=== PATIENT | female | born 1990 | race Caucasian/White ===

== ENCOUNTER 2016-10-12 17:47 | Emergency (ER) | payer BC, MEDICAID ==
[2016-10-12 18:03] VITALS: BP 116/82
--- NOTE | 2016-10-14 16:15 | EDM.PDOC ---
Scribed by Yolis Anderson 10/14/16 [id number] for Gokul Millan MD ED HPI GENERAL MEDICAL PROBLEM - General Chief Complaint: Respiratory Problem Stated Complaint: INHALED CHLORINE Time Seen by Provider: 10/12/16 18:06 Source of Information: Reports: Patient, RN, RN Notes Reviewed - History of Present Illness INITIAL COMMENTS - FREE TEXT/NARRATIVE: Complaint of chlorine gas exposure.. Patient opened a plastic contained of chlorine pool tablets that had gotten hot due to the weather and she inhaled chlorine which made her cough and gag, and caused minor eye irritation. Patient is very anxious because she is 7 weeks and doesn't want anything to hurt her baby. Onset: Today Location: Reports: Face Quality: Reports: Ache Severity: Moderate Improves with: Reports: None Worsens with: Reports: None Associated Symptoms: Reports: No Other Symptoms - Related Data Allergies Allergy/AdvReac Type Severity Reaction Status Date / Time codeine Allergy Nausea Verified 10/12/16 17:59 Home Meds: Home Meds Vits #93/Iron Fum/FA [ Formula Tablet] 1 tab PO DAILY 10/12/16 [History] Past Medical History : 1 Para: 0 ED ROS GENERAL - Review of Systems Review Of Systems: ROS reveals no pertinent complaints other than HPI. ED EXAM, GENERAL - Physical Exam Exam: See Below Exam Limited By: No Limitations General Appearance: Alert, WD/WN, No Apparent Distress Eye Exam: Bilateral Eye: Conjunctival Injection (bilateral conjunctival and scleral infection. Contacts were removed at time of exam and left out. ) Ears: Normal External Exam Nose: Normal Inspection Throat/Mouth: Normal Inspection Head: Atraumatic, Normocephalic Neck: Normal Inspection, Supple, Non-Tender, Full Range of Motion Respiratory/Chest: No Respiratory Distress, Lungs Clear, Normal Breath Sounds, No Accessory Muscle Use, Chest Non-Tender Cardiovascular: Normal Peripheral Pulses, Regular Rate, Rhythm, No Edema, No Gallop, No JVD, No Murmur, No Rub GI/Abdominal: Normal Bowel Sounds, Soft, Non-Tender, No Organomegaly, No Distention, No Abnormal Bruit, No Mass (Female) Exam: Deferred Rectal (Female) Exam: Deferred Back Exam: Normal Inspection, Full Range of Motion, NT Extremities: Normal Inspection, Normal Range of Motion, Non-Tender, Normal Capillary Refill, No Pedal Edema Neurological: Alert, Oriented, CN II-XII Intact, Normal Cognition, Normal Gait, Normal Reflexes, No Motor/Sensory Deficits Psychiatric: Anxious Skin Exam: Warm Course - Vital Signs Last Recorded V/S: Last Vital Signs Temp 36.8 C 10/12/16 17:59 Pulse 87 10/12/16 17:59 Resp 18 10/12/16 17:59 BP 116/82 10/12/16 17:59 Pulse Ox 100 10/12/16 17:59 - Re-Assessments/Exams Free Text/Narrative Re-Assessment/Exam: 10/14/16 15:56 Eyes irrigated with one liter NS in each eye. Departure - Departure Time of Disposition: 18:45 Disposition: Home, Self-Care 01 Condition: Good Clinical Impression: Chlorine inhalation lung injury - Discharge Information Instructions: Pneumonitis Referrals: Cris Benavides [Primary Care Provider] - Forms: ED Department Discharge Additional Instructions: Avoid hot liquids and foods. Drink plenty of water. Follow up in clinic with Dr. Lai in 1-2 days. Return to ER if worse at any time in the next 24-48 hours. I have read and agree with the documentation that has been completed regarding this visit. By signing this record, I attest that the documentation was completed in my physical presence and is an accurate record of the encounter.
== END 2016-10-12 18:55 | disposition home or self-care (01) ==
LOC: DL.ED 17:47
DX: O9A.211 Injury, poisoning and certain other consequences of external causes complicating pregnancy, first trimester (principal); T59.4X1A Toxic effect of chlorine gas, accidental (unintentional), initial encounter; R05 Cough; H44.003 Unspecified purulent endophthalmitis, bilateral; Z88.5 Allergy status to narcotic agent; Z3A.01 Less than 8 weeks gestation of pregnancy
CPT/HCPCS: 99283

== ENCOUNTER 2017-05-15 19:31 | Inpatient (IN) | payer BC ==
[2017-05-15] MEDS ORDERED: Sodium Chloride 0.9% 10 ML Syringe FLUSH PRN ×2 (20:29→23:14)
[2017-05-15] MEDS ORDERED: Acetaminophen 325 MG Tab PO PRN ×2 (20:29→23:14)
[2017-05-15] MEDS ORDERED: Misoprostol 25 MCG (1/4 of 100 MCG) Tab VAG PRN (20:29)
[2017-05-15] MEDS ORDERED: Oxytocin/Normal Saline 30 UNIT/500 ML BAG IV SCH ×2 (20:30→20:45)
[2017-05-15] MEDS ORDERED: Nalbuphine 20 MG/1 ML Amp IM ONE (20:33)
[2017-05-15] MEDS ORDERED: Nalbuphine 20 MG/1 ML Amp IVPUSH ONE (20:33)
[2017-05-15] MEDS ORDERED: Penicillin G Potassium 5 MILLUNITS in Sodium Chloride 0.9% 100 ML IV ONE (20:35)
[2017-05-15] MEDS: Lactated Ringers 1,000 ML IV SCH ×2 (21:00→22:01)
[2017-05-15] MEDS ORDERED: Ondansetron 4 MG/2 ML SDV IV PRN (21:51)
[2017-05-15] MEDS ORDERED: fentaNYL 100 MCG/2 ML SDV ONE (22:07)
[2017-05-15] MEDS ORDERED: EPINEPHrine 1 MG/ML SDV ONE (22:07)
--- NOTE | 2017-05-15 22:26 | HP ---
CHIEF COMPLAINT: In Labor with increasing frequency of contractions. . HISTORY OF PRESENT ILLNESS: This is a 26-year-old female, 3, para 2-0-0 - 2, who presented to the clinic this morning at 40 0/7 weeks gestation for a routine OB examination. On cervical examination in the clinic, she was found to be 4 cm dilated, 80% effaced. Membranes were stripped in the clinic. At that time, patient had Bremer Wright contractions, no headaches and no pedal edema. The patient had irregular contractions beginning at about 1000. At 1300 today, contractions began to be about 6 minutes apart. By 1800, they had become every 3 minutes. At the time of presentation to OB Department (2029), contractions were more severe and moved into her lower abdomen. She was rating the pain with contractions at 5/10. Patient has a sinus pressure headache that began at 1100. and responds well to Tylenol. Last Tylenol was 4 hours prior to presenting to OB department. The patient has had routine care with Dr. Kimberlyn Lai at the clinic. Blood type O positive. Antibody screen negative. She is GBS positive and rubella nonimmune. complicated by gestational diabetes, controlled with diet an exercise. Patient with history of cord avulsion in her second . PAST MEDICAL HISTORY: Medical history of bone metabolism disorder and nephrolithiasis, history of renal stones. PAST SURGICAL HISTORY: Vaginal colposcopy in 2009, inguinal hernia repair as a child, and a D&C post-delivery in 2013. FAMILY HISTORY: Paternal grandmother with diabetes. Father, mother, and paternal grandfather with hypertension. Mother with alcohol abuse. SOCIAL HISTORY: The patient is - , Jean Clifford. This will be their second child together. The patient has one child from a previous relationship, has adopted that child. Patient stays at home with their children. REVIEW OF SYSTEMS: Constitutional: The patient has headache, she describes as sinus headache, see HPI. No fevers. No change in vision. No difficulty swallowing. Pulmonary: No chest tightness. No shortness of breath. No wheezing. Cardiovascular: No heart palpitations. No peripheral edema. Abdomen: No nausea. No vomiting. Gastrointestinal: No diarrhea. No constipation. No hematochezia. Genitourinary: No dysuria. Uterine contractions rated 5/10 in pain. Musculoskeletal: No arthralgias. No myalgias. No joint deformities. MEDICATIONS: 1. vitamin with iron 1. Fluticasone nasal spray. 2. Triamcinolone acetonide or Kenalog 0.1% cream. ALLERGIES: None. Sensitivity to codeine. PHYSICAL EXAMINATION: Vital signs: Temperature 98.2 F, Pulse 89, BP 115/78, Respiration 16, SpO2 98% on room air HEENT: Head is normocephalic. Trachea is midline. Neck is supple. Eyes, globes are normal. Ears, normal to inspection. Heart: Regular without murmur. S1, S2. Regular rate and rhythm. Pulses palpable in the peripheries, equal in strength bilaterally. Lungs: Clear to auscultation bilaterally. No wheeze or rhonchi. Abdomen: Abdomen was measuring appropriately for gestational age. Extremities: Full range of motion. No pedal edema. Skin: Warm and dry. LABORATORY DATA: Hemoglobin of 10.8 g. Plt 245 Bedside serum glucose of 86. ASSESSMENT: 1. 26-year-old female, 3, para 2-0-0-2 with an estimated date of delivery of 05/15/2017 based on a last menstrual period of 08/08/2016 in active labor. 2. Group B Streptococcus positive. Blood type O positive. Rubella nonimmune. 3. 5 cm dilated, 80% effaced, -2 station 4. Gestational diabetes controlled with diet and exercise 5. Chronic anemia of . PLAN: The patient is admitted in Labor. IV penicillin started for group B strep infection. Planning artificial rupture of membranes after IV Penicillin G, loading dose has been administered. The patient is requesting an intrathecal for pain management prior to rupture of membranes. Patient is planning to breast feed. [facility] /[id number] Jessie Flores MS3 dictating for Dr. Dean Rodrigues. [facility]
--- NOTE | 2017-05-15 22:55 | PCM.PRNOTE ---
- Free Text/Narrative Note: Requested to provide analgesia to full term patient in severe pain. Upon entering the room, patient is lying on left side complaining of severe abdominal pain and discomfort. Procedure was discussed with patient including adverse outcomes and expectations. Pt consented to analgesia, SAB/IT. Pt placed into a sitting position. Landmarks for SAB/IT were identified and marked. Back was prepped with betadine x3. A sterile, transparent, fenestrated drape was applied. Excess betadine was removed. Using 3 mL of a 1% lidocaine solution, a skin wheel was placed at the L3/L4 interspace. A 24 ga (4 inch) Pencan spinal needle was inserted until positive for CSF. Negative for heme or paresthesias. Injected fentanyl 20 mcg, sufentanil 10 mcg, and 12 mg of a 0.75 % bupivacaine solution with an epi wash. Pt was placed left lateral position for approximately 20 minutes. There were zero complications or adverse outcomes. Will continue to monitor.
--- NOTE | 2017-05-15 23:05 | PCM.PNLD ---
Labor Progress Note - VS & Meds Vital Signs: Last Vital Signs Temp 98.2 F 05/15/17 21:24 Pulse 89 05/15/17 21:24 Resp 16 05/15/17 21:24 BP 115/78 05/15/17 21:24 Pulse Ox 98 05/15/17 21:24 Active Medications: Current Medications Acetaminophen (Tylenol) 650 mg PO Q4H PRN PRN Reason: Pain/Fever Last Admin: 05/15/17 21:00 Dose: 650 mg Lactated Ringer's (Ringers, Lactated) 1,000 mls @ 125 mls/min IV ASDIRECTED ECHO Oxytocin/Sodium Chloride (Pitocin In Ns 30 Unit/500 Ml) 30 unit in 500 mls @ 2 mls/hr IV TITRATE ECHO; 2 MUNITS/MIN PRN Reason: Protocol Oxytocin/Sodium Chloride (Pitocin In Ns 30 Unit/500 Ml) 30 unit in 500 mls @ 2 mls/hr IV TITRATE ECHO; 2 MUNITS/MIN PRN Reason: Protocol Penicillin G Potassium 2.5 (millunits/ Sodium Chloride) 100 mls @ 200 mls/hr IV Q4H ECHO Misoprostol (Cytotec) 25 mcg VAG Q4H PRN PRN Reason: cervical ripening Ondansetron HCl (Zofran) 4 mg IV Q4H PRN PRN Reason: Nausea/Vomiting Last Admin: 05/15/17 22:11 Dose: 4 mg Sodium Chloride (Saline Flush) 10 ml FLUSH ASDIRECTED PRN PRN Reason: Keep Vein Open Discontinued Medications Epinephrine HCl (Adrenalin) Confirm Administered Dose 1 mg .ROUTE .STK-MED ONE Stop: 05/15/17 22:08 Fentanyl (Sublimaze) Confirm Administered Dose 100 mcg .ROUTE .STK-MED ONE Stop: 05/15/17 22:08 Penicillin G Potassium 5 (millunits/ Sodium Chloride) 100 mls @ 200 mls/hr IV ONETIME ONE Stop: 05/15/17 21:04 Last Admin: 05/15/17 21:01 Dose: 200 mls/hr Nalbuphine HCl (Nubain) 10 mg IVPUSH ONETIME ONE Stop: 05/15/17 20:34 Nalbuphine HCl (Nubain) 20 mg IM ONETIME ONE Stop: 05/15/17 20:34 Sufentanil Citrate (Sufenta) Confirm Administered Dose 50 mcg .ROUTE .STK-[place] ONE Stop: 05/15/17 22:08 - Uterine Contractions Uterine Monitoring Mode: External [place] Contraction Frequency (min): 2-3 Contraction Intensity: Moderate to Strong Uterine Resting Tone: Soft - Monitoring Monitor Mode: External Ultrasound Heart Rate (FHR) Baseline: 140 Heart Rate (FHR) Variability: Moderate (6-25 bmp) Accelerations: Present, 15x15 Decelerations: Late (Occasional Late deceleration noted with variability and acels between contractions.) Strip Review: Category II (Will watch closely pace IUPC and FSE if continues and give Oxygen, Left lateral decubitus and fluid bolus) - Vaginal Exam Dilation (cm): 5 Effacement (Percent): 90 Station: -2 Cervical Position: Midposition Sterile Vaginal Exam Performed By: Jaime Rodrigues - Labor Progress (Free Text) Labor Progress: Patient just received her intrathecal and is very comfortable. Blood pressures 70's to 80's over 40's to 50's AROM- Clear fluid 5 cm/90%/-2. FHT's 140's with Good variability Acel's between contractions Occasional late decelerations. Will give oxygen, Left lateral decubitus and fluid bolus. Anesthesia to give Ephedrine.
[2017-05-15] MEDS ORDERED: ePHEDrine 50 MG/ML SDV ONE ×2 (23:11→23:24)
[2017-05-15] MEDS ORDERED: Benzocaine/Menthol 20%-0.5% Spray 56 GM Canister TOP PRN (23:14)
[2017-05-15] MEDS ORDERED: Misoprostol 400 MCG (4 X 100 MCG TAB) RECTAL PRN (23:14)
[2017-05-15] MEDS ORDERED: Zolpidem 5 MG Tab PO PRN (23:14)
[2017-05-15] MEDS ORDERED: Simethicone 80 MG Tab.Chew PO PRN (23:14)
[2017-05-15] MEDS ORDERED: Carboprost Tromethamine 250 MCG/1 ML Amp IM PRN (23:14)
[2017-05-15] MEDS ORDERED: Naloxone 2 MG/2 ML Syringe ONE (23:37)
--- NOTE | 2017-05-16 | PCM.PRNOTE ---
- Free Text/Narrative Note: Called back to patients room with complaints of hypotension and N/V. Upon arriving, BP is 80's systolic and 50 diastolic. Intrathecal narcotic has been in place for almost an hour. Pt is lying on left side, BP is on right (up) arm. O2 applied via NRB mask. Fluid infusing at a rapid pace. Pt is c/o N/V with dizziness. Pt was given a total of 30 mg ephedrine IVP. BP rebounded and currently 110/53 and has maintained this range for last 30 minutes without intervention. Pt still c/o dizziness and N/V while still on left side. Pt was given 0.5 mg Naloxone IVP with no changes to dizziness or N/V. Respirations never dropped below [address] Rodrigues is bedside and aware of situation. Will continue to monitor.
[2017-05-16] MEDS ORDERED: Penicillin G Potassium 2.5 MILLUNITS in Sodium Chloride 0.9% 100 ML IV SCH (00:30)
--- NOTE | 2017-05-16 00:51 | DEL ---
DATE: 05/16/2017 PREPROCEDURE DIAGNOSES: 1. A 40 and 0/7 weeks' gestation based on last menstrual period of 08/08/2016. 2. 3, para 2-0-0-2. 3. History of gestational diabetes, controlled with diet and exercise. 4. Chronic anemia of . 5. Group B strep positive 6. Rubella Non-immune POSTOPERATIVE DIAGNOSES: 1. A 40 and 1/7 weeks' gestation based on last menstrual period of 08/08/2016. 2. 3, now para 3-0-0-3. 3. History of gestational diabetes, controlled with diet and exercise. 4. Group B Strep positive 5. Chronic anemia of . 6. Rubella Non- Immune 7. of a viable male infant. 8. Terminal meconium. BRIEF HISTORY: A 26-year-old female with the above-listed diagnosis, presented to the hospital with increasing frequency of contractions. She had artificial rupture of membranes at 2230, and labor was augmented by Pitocin. She had an intrathecal for pain management. See history and physical and progress notes for further details. PROCEDURE IN DETAIL: With the patient in dorsal lithotomy position, she delivered a viable male infant OA, over an intact perineum. was dried and stimulated. Mouth and nose were bulb suctioned. Baby was placed on mother's abdomen. After a 30-second delay, umbilical cord was doubly clamped and then cut. Father of baby cut the umbilical cord. Cord blood sample was obtained. Baby had terminal meconium that was suctioned out. Placenta was delivered via gentle cord traction and simultaneous uterus massage. Placenta was delivered with trailing membranes and found to be intact. Labia and vagina were inspected. There were no abrasions or lacerations requiring repair. Second stage of labor lasted 4 minutes. Currently, male born at 0004 on 05/16/2019. scores 9 at 1 minute 9 at 5 minutes ESTIMATED BLOOD LOSS: 300 mL. COMPLICATIONS: None. FINDINGS: Viable male , scores 9 at 1 minute and 9 at 5 minutes. weight 8 lbs 1 oz. 19 inches long. DISPOSITION: Mother and baby are staying in the room at this time. Mother is planning to breast feed. Mother and baby doing well at this time. [facility] /[id number] MTDD
[2017-05-16] MEDS ORDERED: Promethazine 25 MG/ML SDV IM ONE (01:03)
[2017-05-16] MEDS: Prenatal Multivitamin with Calcium/Folic Acid/Iron Tab PO SCH (08:38)
[2017-05-16] MEDS: Docusate Sodium 100 MG Cap PO PRN ×2 (08:39→19:03)
[2017-05-16] MEDS: Ibuprofen 800 MG Tab PO PRN ×2 (08:39→19:02)
[2017-05-16] MEDS: Ferrous Sulfate 325 MG Tab PO SCH ×2 (08:39→19:02)
[2017-05-16] MEDS ORDERED: Sodium Chloride 0.65% Nasal Spray 45 ML Bottle NAS PRN (08:41)
[2017-05-16] MEDS ORDERED: Measles, Mumps & Rubella Vaccine 0.5 ML SDV SUBCUT ONE (08:47)
[2017-05-16] MEDS ORDERED: Non-Formulary Medication 1 Each (Prenatal Vits #93/Iron Fum/Fa [Prenatal Formula Tablet] 1 PO SCH (09:00)
--- NOTE | 2017-05-16 12:40 | PCM.PNPP ---
- General Info Date of Service: 05/16/17 (PPD # 0 S/P ) Functional Status: Reports: Pain Controlled, Tolerating Diet, Ambulating, Urinating - Review of Systems General: Reports: No Symptoms HEENT: Reports: No Symptoms Pulmonary: Reports: No Symptoms Cardiovascular: Reports: No Symptoms Gastrointestinal: Reports: No Symptoms Genitourinary: Reports: No Symptoms Musculoskeletal: Reports: No Symptoms Skin: Reports: No Symptoms Neurological: Reports: No Symptoms Psychiatric: Reports: No Symptoms - General Info Date of Service: 05/16/17 (PPD # 0 S/P ) - Patient Data Vital Signs - Most Recent: Last Vital Signs Temp 98.1 F 05/16/17 08:00 Pulse 69 05/16/17 08:00 Resp 16 05/16/17 08:00 BP 103/64 05/16/17 08:00 Pulse Ox 98 05/15/17 21:24 Weight - Most Recent: 161 lb I&O - Last 24 Hours: Intake & Output 05/15/17 05/16/17 05/16/17 22:59 06:59 14:59 Intake Total 100 2250 Balance 100 2250 Lab Results - Last 24 Hours: Laboratory Results - last 24 hr 05/15/17 05/15/17 05/15/17 Range/Units 21:55 22:43 23:34 WBC 14.4 H (5.0-10.0) 10^3/uL RBC 3.57 L (4.2-5.4) 10^6/uL Hgb 10.8 L (12.0-16.0) g/dL Hct 33.1 L (37.0-47.0) % MCV 92.7 (80-100) fL MCH 30.3 (27.0-34.0) pg MCHC 32.6 L (33.0-35.0) g/dL Plt Count 245 (150-450) 10^3/uL Neut % (Auto) 69.9 (42.2-75.2) % Lymph % (Auto) 23.0 (20.5-50.1) % [place] % (Auto) 6.7 (2-8) % Eos % (Auto) 0.3 L (1.0-3.0) % Baso % (Auto) 0.1 (0.0-1.0) % POC Glucose 86 90 (70-105) mg/dl Med Orders - Current: Current Medications Acetaminophen (Tylenol) 650 mg PO Q6H PRN PRN Reason: mild pain or fever Benzocaine/Menthol (Dermoplast Pain Relief [place]) 0 gm TOP Q4H PRN PRN Reason: Perineal comfort measures Carboprost Tromethamine (Hemabate Ds) 250 mcg IM ASDIRECTED PRN PRN Reason: Excessive vaginal bleeding Docusate Sodium (Colace) 100 mg PO BID PRN PRN Reason: Constipation Last Admin: 05/16/17 08:39 Dose: 100 mg Ferrous Sulfate (Ferrous Sulfate) 325 mg PO BIDMEALS ECHO Last Admin: 05/16/17 08:39 Dose: 325 mg Lactated Ringer's (Ringers, Lactated) 1,000 mls @ 125 mls/min IV ASDIRECTED ECHO Last Admin: 05/15/17 22:01 Dose: 125 mls/min Oxytocin/Sodium Chloride (Pitocin In Ns 30 Unit/500 Ml) 30 unit in 500 mls @ 2 mls/hr IV TITRATE ECHO; 2 MUNITS/MIN PRN Reason: Protocol Last Titration: 05/16/17 03:10 Dose: 0 mls/hr Oxytocin/Sodium Chloride (Pitocin In Ns 30 Unit/500 Ml) 30 unit in 500 mls @ 2 mls/hr IV TITRATE ECHO; 2 MUNITS/MIN PRN Reason: Protocol Ibuprofen (Motrin) 800 mg PO Q8H PRN PRN Reason: Mild Pain or Fever Last Admin: 05/16/17 08:39 Dose: 800 mg Misoprostol (Cytotec) 25 mcg VAG Q4H PRN PRN Reason: cervical ripening Misoprostol (Cytotec) 800 mcg RECTAL ONETIME PRN PRN Reason: Hemorrhage Ondansetron HCl (Zofran) 4 mg IV Q4H PRN PRN Reason: Nausea/Vomiting Last Admin: 05/15/17 22:11 Dose: 4 mg Prenat Multivit/Risk Officer/Iron/Folic Ac ( Plus Iron) 1 each PO DAILY ECHO Last Admin: 05/16/17 08:38 Dose: 1 each Simethicone (Simethicone) 80 mg PO Q4H PRN PRN Reason: Gas Sodium Chloride (Saline Flush) 10 ml FLUSH ASDIRECTED PRN PRN Reason: Keep Vein Open Sodium Chloride ([place] Nasal [place]) 0 ml RAVEN Q2H PRN PRN Reason: Nasal Dryness Last Admin: 05/16/17 09:42 Dose: 2 puff Zolpidem Tartrate (Ambien) 5 mg PO BEDTIME PRN PRN Reason: Insomnia Discontinued Medications Acetaminophen (Tylenol) 650 mg PO Q4H PRN PRN Reason: Pain/Fever Last Admin: 05/15/17 21:00 Dose: 650 mg Ephedrine Sulfate (Ephedrine Sulfate) Confirm Administered Dose 50 mg .ROUTE .STK-MED ONE Stop: 05/15/17 23:12 Ephedrine Sulfate (Ephedrine Sulfate) Confirm Administered Dose 50 mg .ROUTE .STK-MED ONE Stop: 05/15/17 23:25 Epinephrine HCl (Adrenalin) Confirm Administered Dose 1 mg .ROUTE .STK-MED ONE Stop: 05/15/17 22:08 Fentanyl (Sublimaze) Confirm Administered Dose 100 mcg .ROUTE .STK-MED ONE Stop: 05/15/17 22:08 Penicillin G Potassium 5 (millunits/ Sodium Chloride) 100 mls @ 200 mls/hr IV ONETIME ONE Stop: 05/15/17 21:04 Last Admin: 05/15/17 21:01 Dose: 200 mls/hr Penicillin G Potassium 2.5 (millunits/ Sodium Chloride) 100 mls @ 200 mls/hr IV Q4H ECHO Last Admin: 05/16/17 02:13 Dose: Not Given Measles/Mumps/Rubella Vaccine Live (M-M-R Ii Vaccine) 0.5 ml SUBCUT .ONCE ONE Stop: 05/16/17 08:48 Last Admin: 05/16/17 09:43 Dose: 0.5 ml Nalbuphine HCl (Nubain) 10 mg IVPUSH ONETIME ONE Stop: 05/15/17 20:34 Last Admin: 05/16/17 02:12 Dose: Not Given Nalbuphine HCl (Nubain) 20 mg IM ONETIME ONE Stop: 05/15/17 20:34 Last Admin: 05/16/17 02:12 Dose: Not Given Naloxone HCl (Narcan) Confirm Administered Dose 2 mg .ROUTE .STK-MED ONE Stop: 05/15/17 23:38 Non-Formulary Medication ( Vits #93/Iron Fum/Fa [ Formula Tablet ]) 1 tab PO DAILY ECHO Promethazine HCl (Phenergan) 50 mg IM ONETIME ONE Stop: 05/16/17 01:04 Sodium Chloride (Saline Flush) 10 ml FLUSH ASDIRECTED PRN PRN Reason: Keep Vein Open Sufentanil Citrate (Sufenta) Confirm Administered Dose 50 mcg .ROUTE .STK-MED ONE Stop: 05/15/17 22:08 - Interaction Infant Disposition, : [place] in Room with Family Interaction: Holding Infant Infant Feeding: Breastfed Infant; Nursed Well Support Person: - Recovery Exam Fundal Tone: Firm Fundal Level: 1 Fingerbreadths Below Umbilicus Fundal Placement: Midline Lochia Amount: Moderate Lochia Color: Rubra/Red Perineum Description: Intact, Minimal Bruising/Swelling Episiotomy/Laceration: None Bladder Status: Voiding Urinary Elimination: Voided - Exam General: Alert, Oriented, Cooperative, No Acute Distress HEENT: Pupils Equal, Pupils Reactive, Mucous Membr. Moist/Briny Breezes Neck: Supple Lungs: Clear to Auscultation, Normal Respiratory Effort Cardiovascular: Regular Rate, Regular Rhythm GI/Abdominal Exam: Normal Bowel Sounds, Soft, Non-Tender, No Organomegaly, No Distention Extremities: Normal Inspection, Normal Range of Motion, Non-Tender, No Pedal Edema, Normal Capillary Refill Skin: Warm, Dry, Intact Neurological: No New Focal Deficit Psy/Mental Status: Alert, Normal Affect, Normal Mood - Problem List Review Problem List Initiated/Reviewed/Updated: Yes - My Orders Last 24 Hours: My Active Orders 05/15/17 23:14 May Shower [RC] ASDIRECTED Acetaminophen [Tylenol] 650 mg PO Q6H PRN Benzocaine/Menthol [Dermoplast Pain Relief [place]] See Dose Instructions TOP Q4H PRN Carboprost Tromethamine [Hemabate DS] 250 mcg IM ASDIRECTED PRN Docusate Sodium [Colace] 100 mg PO BID PRN Ibuprofen [Motrin] 800 mg PO Q8H PRN Misoprostol [Cytotec] 800 mcg RECTAL ONETIME PRN Simethicone 80 mg PO Q4H PRN Sodium Chloride 0.9% [Saline Flush] 10 ml FLUSH ASDIRECTED PRN Zolpidem [Ambien] 5 mg PO BEDTIME PRN Assess Lochia [WOMSER] Per Unit Routine Assess Uterine Involution [WOMSER] Per Unit Routine Breast Pump [WOMSER] Per Unit Routine Ice Therapy [OM.PC] Per Unit Routine Perineal Care [OM.PC] Per Unit Routine Saline Lock Insert [OM.PC] Urgent Sitz Bath [OM.PC] Per Unit Routine Resuscitation Status Routine 05/15/17 23:15 Peripheral IV Discontinue [OM.PC] Routine 05/16/17 08:00 Ferrous Sulfate 325 mg PO BIDMEALS 05/16/17 08:41 Sodium Chloride 0.65% [[place] Nasal [place]] See Dose Instructions RAVEN Q2H PRN 05/16/17 08:47 Vaccines to be Administered [RC] PER UNIT ROUTINE 05/16/17 09:00 Vit with Ca/FA/Iron [ Plus Iron] 1 each PO DAILY 05/16/17 Breakfast Regular Diet [DIET] 05/17/17 06:00 CBC W/O DIFF,HEMOGRAM [HEME] Routine - Assessment Assessment:: PPD # 0 S/P Doing well - Plan Plan:: Continue present care. Increase ambulation Ibuprofen and Tylenol for pain control
[2017-05-17] MEDS: Ibuprofen 800 MG Tab PO PRN (05:54)
--- NOTE | 2017-05-17 10:10 | PCM.PNPP ---
- General Info Date of Service: 05/17/17 (PPD # 1 S/P ) Functional Status: Reports: Pain Controlled, Tolerating Diet, Ambulating, Urinating - Review of Systems General: Reports: No Symptoms HEENT: Reports: No Symptoms Pulmonary: Reports: No Symptoms Cardiovascular: Reports: No Symptoms Gastrointestinal: Reports: No Symptoms Genitourinary: Reports: No Symptoms Musculoskeletal: Reports: No Symptoms Skin: Reports: No Symptoms Neurological: Reports: No Symptoms Psychiatric: Reports: No Symptoms - General Info Date of Service: 05/17/17 (PPD # 1 S/P ) - Patient Data Vital Signs - Most Recent: Last Vital Signs Temp 98.2 F 05/16/17 19:07 Pulse 76 05/16/17 19:07 Resp 16 05/16/17 19:07 BP 96/62 05/16/17 19:07 Pulse Ox 98 05/16/17 19:07 Weight - Most Recent: 161 lb Lab Results - Last 24 Hours: Laboratory Results - last 24 hr 05/17/17 Range/Units 05:45 WBC 9.5 (5.0-10.0) 10^3/uL RBC 3.38 L (4.2-5.4) 10^6/uL Hgb 10.3 L (12.0-16.0) g/dL Hct 32.1 L (37.0-47.0) % MCV 95.0 (80-100) fL MCH 30.5 (27.0-34.0) pg MCHC 32.1 L (33.0-35.0) g/dL Plt Count 255 (150-450) 10^3/uL Med Orders - Current: Current Medications Acetaminophen (Tylenol) 650 mg PO Q6H PRN PRN Reason: mild pain or fever Benzocaine/Menthol (Dermoplast Pain Relief [place]) 0 gm TOP Q4H PRN PRN Reason: Perineal comfort measures Carboprost Tromethamine (Hemabate Ds) 250 mcg IM ASDIRECTED PRN PRN Reason: Excessive vaginal bleeding Docusate Sodium (Colace) 100 mg PO BID PRN PRN Reason: Constipation Last Admin: 05/16/17 19:03 Dose: 100 mg Ferrous Sulfate (Ferrous Sulfate) 325 mg PO [facility] Last Admin: 05/16/17 19:02 Dose: 325 mg Lactated Ringer's (Ringers, Lactated) 1,000 mls @ 125 mls/min IV ASDIRECTED ECHO Last Admin: 05/15/17 22:01 Dose: 125 mls/min Oxytocin/Sodium Chloride (Pitocin In Ns 30 Unit/500 Ml) 30 unit in 500 mls @ 2 mls/hr IV TITRATE ECHO; 2 MUNITS/MIN PRN Reason: Protocol Last Titration: 05/16/17 03:10 Dose: 0 mls/hr Oxytocin/Sodium Chloride (Pitocin In Ns 30 Unit/500 Ml) 30 unit in 500 mls @ 2 mls/hr IV TITRATE ECHO; 2 MUNITS/MIN PRN Reason: Protocol Ibuprofen (Motrin) 800 mg PO Q8H PRN PRN Reason: Mild Pain or Fever Last Admin: 05/17/17 05:54 Dose: 800 mg Misoprostol (Cytotec) 25 mcg VAG Q4H PRN PRN Reason: cervical ripening Misoprostol (Cytotec) 800 mcg RECTAL ONETIME PRN PRN Reason: Hemorrhage Ondansetron HCl (Zofran) 4 mg IV Q4H PRN PRN Reason: Nausea/Vomiting Last Admin: 05/15/17 22:11 Dose: 4 mg Prenat Multivit/[place]/Iron/Folic Ac ( Plus Iron) 1 each PO DAILY ECHO Last Admin: 05/16/17 08:38 Dose: 1 each Simethicone (Simethicone) 80 mg PO Q4H PRN PRN Reason: Gas Sodium Chloride (Saline Flush) 10 ml FLUSH ASDIRECTED PRN PRN Reason: Keep Vein Open Sodium Chloride ([place] Nasal [place]) 0 ml RAVEN Q2H PRN PRN Reason: Nasal Dryness Last Admin: 05/16/17 09:42 Dose: 2 puff Zolpidem Tartrate (Ambien) 5 mg PO BEDTIME PRN PRN Reason: Insomnia Discontinued Medications Acetaminophen (Tylenol) 650 mg PO Q4H PRN PRN Reason: Pain/Fever Last Admin: 05/15/17 21:00 Dose: 650 mg Ephedrine Sulfate (Ephedrine Sulfate) Confirm Administered Dose 50 mg .ROUTE .STK-MED ONE Stop: 05/15/17 23:12 Last Admin: 05/16/17 19:18 Dose: Not Given Ephedrine Sulfate (Ephedrine Sulfate) Confirm Administered Dose 50 mg .ROUTE .STK-MED ONE Stop: 05/15/17 23:25 Last Admin: 05/16/17 19:18 Dose: Not Given Epinephrine HCl (Adrenalin) Confirm Administered Dose 1 mg .ROUTE .STK-MED ONE Stop: 05/15/17 22:08 Last Admin: 05/16/17 19:18 Dose: Not Given Fentanyl (Sublimaze) Confirm Administered Dose 100 mcg .ROUTE .STK-MED ONE Stop: 05/15/17 22:08 Last Admin: 05/16/17 19:18 Dose: Not Given Penicillin G Potassium 5 (millunits/ Sodium Chloride) 100 mls @ 200 mls/hr IV ONETIME ONE Stop: 05/15/17 21:04 Last Admin: 05/15/17 21:01 Dose: 200 mls/hr Penicillin G Potassium 2.5 (millunits/ Sodium Chloride) 100 mls @ 200 mls/hr IV Q4H ECHO Last Admin: 05/16/17 02:13 Dose: Not Given Measles/Mumps/Rubella Vaccine Live (M-M-R Ii Vaccine) 0.5 ml SUBCUT .ONCE ONE Stop: 05/16/17 08:48 Last Admin: 05/16/17 09:43 Dose: 0.5 ml Nalbuphine HCl (Nubain) 10 mg IVPUSH ONETIME ONE Stop: 05/15/17 20:34 Last Admin: 05/16/17 02:12 Dose: Not Given Nalbuphine HCl (Nubain) 20 mg IM ONETIME ONE Stop: 05/15/17 20:34 Last Admin: 05/16/17 02:12 Dose: Not Given Naloxone HCl (Narcan) Confirm Administered Dose 2 mg .ROUTE .STK-MED ONE Stop: 05/15/17 23:38 Last Admin: 05/16/17 19:18 Dose: Not Given Non-Formulary Medication ( Vits #93/Iron Fum/Fa [ Formula Tablet ]) 1 tab PO DAILY ECHO Promethazine HCl (Phenergan) 50 mg IM ONETIME ONE Stop: 05/16/17 01:04 Sodium Chloride (Saline Flush) 10 ml FLUSH ASDIRECTED PRN PRN Reason: Keep Vein Open Sufentanil Citrate (Sufenta) Confirm Administered Dose 50 mcg .ROUTE .STK-MED ONE Stop: 05/15/17 22:08 Last Admin: 05/16/17 19:18 Dose: Not Given - Infant Interaction Infant Disposition, : [place] in Room with Family Infant Interaction: Holding Feeding: Breastfed ; Nursed Well Support Person: - Recovery Exam Fundal Tone: Firm Fundal Level: 1 Fingerbreadths Below Umbilicus Fundal Placement: Midline Lochia Amount: Scant Lochia Color: Rubra/Red Perineum Description: Intact, Minimal Bruising/Swelling Episiotomy/Laceration: None Bladder Status: Voiding Urinary Elimination: Voided - Exam General: Alert, Oriented, Cooperative, No Acute Distress HEENT: Pupils Equal, Pupils Reactive, Mucous Membr. Moist/[place] Neck: Supple Lungs: Clear to Auscultation, Normal Respiratory Effort Cardiovascular: Regular Rate, Regular Rhythm GI/Abdominal Exam: Normal Bowel Sounds, Soft, Non-Tender, No Organomegaly Extremities: Normal Inspection, Normal Range of Motion, Non-Tender, No Pedal Edema, Normal Capillary Refill Skin: Warm, Dry, Intact Neurological: No New Focal Deficit Psy/Mental Status: Alert, Normal Affect, Normal Mood - Problem List Review Problem List Initiated/Reviewed/Updated: Yes - My Orders Last 24 Hours: My Active Orders 05/17/17 10:07 Ready for Discharge [RC] PER UNIT ROUTINE - Assessment Assessment:: PPD # 1 S/P Doing well - Plan Plan:: Discharge to home. Follow-up with Dr. Lai at 6 wek check-up. Ibuprofen and Tylenol for pain control
[2017-05-17] MEDS: Ferrous Sulfate 325 MG Tab PO SCH (10:19)
[2017-05-17] MEDS: Docusate Sodium 100 MG Cap PO PRN (10:19)
[2017-05-17] MEDS: Prenatal Multivitamin with Calcium/Folic Acid/Iron Tab PO SCH (10:20)
[2017-05-17 10:51] VITALS: BP 98/68
[2017-05-17] MEDS ORDERED: ePHEDrine 50 MG/ML SDV IV ONE (11:19)
[2017-05-17] MEDS ORDERED: Naloxone 2 MG/2 ML Syringe IV ONE (11:19)
[2017-05-17] MEDS ORDERED: EPINEPHrine 1 MG/ML SDV ONE (11:19)
[2017-05-17] MEDS ORDERED: fentaNYL 100 MCG/2 ML SDV ITHECAL ONE (11:19)
--- NOTE | 2017-05-18 09:31 | DISCH ---
INDICATION FOR ADMISSION: Mrs. Clifford is a 26-year-old, 3, para 2-0-0-2 female of 40 weeks' gestation, who reported to Labor and Delivery, mary kate every 2 to 3 minutes apart, 4 cm dilated, 80% effaced, -2 station. She had been in to see her primary care provider, Dr. Kimberlyn Lai early of the day. She did have some membranes that were stripped, and her contractions became increasingly closer and stronger. She did dilate to 5 cm, 80% effaced, - 2 station with her being group B Strep positive, we did give her penicillin G IV for group B Strep protocol after she was given her first dose of penicillin IV, artificial rupture of membranes occurred with clear fluid noted. She tolerated her labor quite well. Once she got uncomfortable, intrathecal anesthesia was obtained. She tolerated the rest of her labor quite well. Once she got to completely dilated, started pushing, and she had delivery of a viable male infant, OA, over an intact perineum. The baby weighed 8 pounds 1 ounce, 19 inches long with Apgars being 9 at one minute and 9 at five minutes. She and the baby tolerated their care quite nicely. No complications occurred throughout their entire hospital stay. She was afebrile. Vital signs were stable. She tolerated her diet well and ambulated quite well. She had minimal lochia. She breastfed her baby quite nicely. She was discharged home on day #1. LABORATORY AND DIAGNOSTIC STUDIES: On 05/15/2017, WBC 14.4, hemoglobin 10.8, hematocrit 33.1, platelet count 245,000. Glucose of 90. On 05/17/2017, WBC 9.5, hemoglobin 10.3, hematocrit 32.1, platelet count 255,000. DISCHARGE INSTRUCTIONS: 1. Discharge to home. 2. Follow up with Dr. Kimberlyn Lai in the office in 6 weeks or sooner if problems develop. 3. No douching, tampons, intercourse for 6 weeks. 4. Ibuprofen 800 mg one tablet every 6 to 8 hours p.r.n. for pain. 5. Discharge instructions including activity, followup, medications, diet, and wound care were discussed with the patient. She understands these and is willing to comply with these. DISCHARGE DIAGNOSES: 1. Forty week intrauterine . 2. History of gestational diabetes, diet controlled, well controlled. 3. Chronic anemia of . 4. Group B Streptococcus vaginal culture positive. 5. Rubella nonimmune. 6. Active labor. 7. Artificial rupture of membranes. 8. Pitocin augmentation. 9. Normal spontaneous vaginal delivery of a viable male infant, weighing 8 pounds 1 ounce, 19 inches long with Apgars of 9 at one minute, 9 at five minutes. 10.Terminal meconium. 11.Intrathecal anesthesia. [facility] /[id number]
== END 2017-05-17 11:20 | disposition home or self-care (01) | DRG 560 ==
LOC: DL.OBCHECK 19:31 → DL.OB 20:29 → OBSVTOIN 05-16 00:04
PROVIDERS: ADMIT Obstetrics & Gynecology; ATTEND Obstetrics & Gynecology
PROC: 10E0XZZ Delivery of Products of Conception, External Approach (ICD-10-PCS; principal; 2017-05-16)
PROC: 10907ZC Drainage of Amniotic Fluid, Therapeutic from Products of Conception, Via Natural or Artificial Opening (ICD-10-PCS; 2017-05-16)
PROC: 00HU33Z Insertion of Infusion Device into Spinal Canal, Percutaneous Approach (ICD-10-PCS; 2017-05-16)
PROC: 3E0R3BZ Introduction of Anesthetic Agent into Spinal Canal, Percutaneous Approach (ICD-10-PCS; 2017-05-16)
DX: O24.420 Gestational diabetes mellitus in childbirth, diet controlled (principal); O99.824 Streptococcus B carrier state complicating childbirth; Z3A.40 40 weeks gestation of pregnancy; Z37.0 Single live birth; O99.02 Anemia complicating childbirth; O77.0 Labor and delivery complicated by meconium in amniotic fluid
CPT/HCPCS: 36415; 59409; 82962; 85025; 85027; 90471; 90707; A9270-GY; J0171; J2310; J2405; J2540; J2590; J3010; J7050; J7120